=== PATIENT | female | born 1980 | race Caucasian/White ===

== ENCOUNTER 2017-11-12 14:31 | Emergency (ER) | payer SELFPAY ==
[2017-11-12] MEDS ORDERED: HYDROcodone/Acetaminophen 10/325 mg Tablet ONE (14:55)
[2017-11-12] MEDS ORDERED: cefTRIAXone\\ROCEPHIN 1 GM VIAL ONE (14:55)
[2017-11-12] MEDS ORDERED: Ibuprofen 800 MG TAB ONE (14:55)
[2017-11-12] MEDS ORDERED: Lidocaine 1% 20 ML MDV ONE (14:55)
== END 2017-11-12 15:15 | disposition home or self-care (01) ==
LOC: BURERS 14:31
DX: K04.7 Periapical abscess without sinus (principal); K02.9 Dental caries, unspecified; K03.81 Cracked tooth; F41.9 Anxiety disorder, unspecified; F32.9 Major depressive disorder, single episode, unspecified; F17.210 Nicotine dependence, cigarettes, uncomplicated
CPT/HCPCS: 96372; J0696; J2001

== ENCOUNTER 2018-01-04 17:37 | Emergency (ER) | payer SELFPAY ==
[2018-01-04] MEDS ORDERED: Acetaminophen/Codeine 30-300mg Tablet ONE (17:54)
[2018-01-04] MEDS ORDERED: Ketorolac Tromethamine 60 MG/2 ML VIAL ONE (17:54)
== END 2018-01-04 18:16 | disposition home or self-care (01) ==
LOC: BURERS 17:37
DX: M26.621 Arthralgia of right temporomandibular joint (principal); F32.9 Major depressive disorder, single episode, unspecified; F41.9 Anxiety disorder, unspecified; F17.210 Nicotine dependence, cigarettes, uncomplicated
CPT/HCPCS: 99282; J1885

== ENCOUNTER 2018-02-01 19:17 | Emergency (ER) | payer SELFPAY ==
[2018-02-01] MEDS ORDERED: Lorazepam 0.5 MG TAB ONE (19:52)
[2018-02-01] MEDS ORDERED: Ibuprofen 200 MG TAB ONE (19:53)
[2018-02-01] MEDS ORDERED: Amoxicillin 125 mg/5 ml Oral Suspension ONE (19:53)
[2018-02-01] MEDS ORDERED: AMOXicillin 250 MG CAP ONE (19:53)
== END 2018-02-01 20:02 | disposition home or self-care (01) ==
LOC: BURERS 19:17
DX: K03.81 Cracked tooth (principal); K02.9 Dental caries, unspecified; F41.9 Anxiety disorder, unspecified; F32.9 Major depressive disorder, single episode, unspecified; F17.210 Nicotine dependence, cigarettes, uncomplicated; Z79.899 Other long term (current) drug therapy
CPT/HCPCS: 99282

== ENCOUNTER 2019-09-12 13:49 | Emergency (ER) | payer SELFPAY ==
--- NOTE | 2019-09-12 15:19 | RAD ---
RIGHT FOOT 3 VIEWS: DATE: 09/12/2019. FINDINGS: There is a transverse fracture through the 1st metatarsal shaft with slight displacement. Additional ly, there appears to be a small chip avulsion from the 1st metatarsal head. Finally, there is a frac ture of the medial cuneiform near the medial aspect of the 1st tarsometatarsal joint. The remainder of the foot appears intact. An old healed injury of the 5th metatarsal shaft was noted. IMPRESSION: Acute fractures of the 1st metatarsal and medial cuneiform. POS: HOME
[2019-09-12] MEDS ORDERED: Bacitracin 1 PK ONE (15:42)
[2019-09-12] MEDS ORDERED: Ketorolac Tromethamine 30 MG/ML VIAL ONE (15:54)
[2019-09-12] MEDS ORDERED: Adacel (T-DAP) 0.5 ML SYRINGE ONE (16:22)
== END 2019-09-12 16:40 | disposition left against medical advice (07) ==
LOC: BURERS 13:49
DX: S92.311A Displaced fracture of first metatarsal bone, right foot, initial encounter for closed fracture (principal); F41.9 Anxiety disorder, unspecified; F32.9 Major depressive disorder, single episode, unspecified; F17.210 Nicotine dependence, cigarettes, uncomplicated; W20.8XXA Other cause of strike by thrown, projected or falling object, initial encounter
CPT/HCPCS: 28470; 90715; 96372; J1885

== ENCOUNTER 2020-01-04 11:07 | Emergency (ER) | payer SELFPAY ==
[2020-01-04] MEDS ORDERED: Morphine 4 MG/ML VIAL ONE (11:23)
[2020-01-04] MEDS ORDERED: Cyclobenzaprine 10 MG TAB ONE (11:24)
== END 2020-01-04 12:15 | disposition home or self-care (01) ==
LOC: BURERS 11:07
DX: M62.830 Muscle spasm of back (principal); F41.9 Anxiety disorder, unspecified; F17.210 Nicotine dependence, cigarettes, uncomplicated; X50.1XXA Overexertion from prolonged static or awkward postures, initial encounter
CPT/HCPCS: 96372; 99283; J2270

== ENCOUNTER 2020-04-18 12:13 | Emergency (ER) | payer SELFPAY ==
[2020-04-18] MEDS ORDERED: CEFAZOLIN 1 GM VIAL ONE (13:28)
[2020-04-18] MEDS ORDERED: Lorazepam 2 MG/ML VIAL ONE (14:07)
[2020-04-18] MEDS ORDERED: Ketorolac Tromethamine 30 MG/ML VIAL ONE (14:20)
[2020-04-18 14:25] LABS: #Basophils 0.1 thou/uL (0.0-0.2); #Eosinphils 0.1 thou/uL (0.0-0.7); #Lymphocytes 2.6 thou/uL (1.20-3.40); #Monocytes 1.2 thou/uL (0.11-0.59); #Neutrophils 6.1 thou/uL (1.40-6.50); %Eosinophils 1.1 % (0.0-10.0); %Lymphocytes 25.5 % (21.0-51.0); %Monocytes 11.9 % (0.0-10.0); %Neutrophils 60.5 % (42.0-75.0); Hemoglobin 11.5 g/dL (12.0-16.0); Mean Corpuscular HGB CONC 29.4 g/dL (32.0-36.0); Mean Corpuscular Hemoglobin 26.8 pg (27.0-31.0); Mean Corpuscular Volume 91.4 fL (78.0-98.0); Mean Platelet Volume 7.1 fL (7.4-10.4); Platelet Count 506 thou/uL (130-400); RBC Distribution Width 16.1 % (11.5-14.5); White Blood Cell (WBC) Count 10.1 thou/uL (4.8-10.8)
[2020-04-18 14:38] LABS: Hypochromia SLIGHT = 6-15 cells (100X) (0-5/hpf); MDiff Complete? YES
--- NOTE | 2020-04-18 16:08 | RAD ---
RIGHT HAND THREE VIEWS: 04/18/20 Soft tissue swelling is seen around the proximal portion of the third digit. No fracture or area of b jamaal destruction was seen here or elsewhere in the hand or wrist. IMPRESSION: Swelling. POS: HOME
== END 2020-04-18 15:15 | disposition short-term general hospital (02) ==
LOC: BURERS 12:13
DX: L02.511 Cutaneous abscess of right hand (principal); F41.9 Anxiety disorder, unspecified; F17.210 Nicotine dependence, cigarettes, uncomplicated
CPT/HCPCS: 85025; 85652; 96365; 96375; J0690; J1885; J2060

== ENCOUNTER 2021-12-06 21:00 | Emergency (ER) | payer SELFPAY ==
[2021-12-06] MEDS ORDERED: Ibuprofen 800 MG TAB ONE (21:26)
[2021-12-06] MEDS ORDERED: HYDROcodone/Acetaminophen 5/325 mg Tablet ONE (22:02)
== END 2021-12-06 22:15 | disposition home or self-care (01) ==
LOC: BURERS 21:00
DX: S22.41XA Multiple fractures of ribs, right side, initial encounter for closed fracture (principal); F17.210 Nicotine dependence, cigarettes, uncomplicated; W00.0XXA Fall on same level due to ice and snow, initial encounter
CPT/HCPCS: 71250; 94799

== ENCOUNTER 2022-07-18 14:15 | Emergency (ER) | payer SELFPAY ==
[2022-07-18] MEDS ORDERED: predniSONE 20 MG TAB ONE (14:39)
== END 2022-07-18 14:53 | disposition home or self-care (01) ==
LOC: BURERS 14:15
DX: M79.652 Pain in left thigh (principal); F17.210 Nicotine dependence, cigarettes, uncomplicated
CPT/HCPCS: 99283; J7512

== ENCOUNTER 2022-08-01 22:12 | Emergency (ER) | payer SELFPAY ==
[2022-08-01] MEDS ORDERED: predniSONE 20 MG TAB ONE (22:36)
== END 2022-08-01 22:45 | disposition home or self-care (01) ==
LOC: BURERS 22:12
DX: M25.552 Pain in left hip (principal); F17.210 Nicotine dependence, cigarettes, uncomplicated
CPT/HCPCS: 99283; J7512

== ENCOUNTER 2023-01-18 07:53 | Emergency (ER) | payer SELFPAY ==
[2023-01-18] MEDS ORDERED: Morphine 4 MG/ML VIAL ONE (09:28)
[2023-01-18] MEDS ORDERED: Dexamethasone 10 MG/ML VIAL ONE (09:28)
[2023-01-18] MEDS ORDERED: Lorazepam 0.5 MG TAB ONE (09:28)
[2023-01-18 10:28] LABS: Bilirubin Negative (Negative); Blood, Urine Negative (Negative); Clarity Clear (Clear); Glucose, Urine (Dipstick) Negative (Negative); Ketone, Urine Negative (Negative); Leukocyte Negative (Negative); Nitrite Negative (Negative); Protein, Urine (Dipstick) Negative (Neg-Trace); Urobilinogen 0.2 mg/dL (Less than 2); pH, Urine 6.5 (5.0-9.0)
[2023-01-18] MEDS ORDERED: Ibuprofen 200 MG TAB ONE (11:12)
== END 2023-01-18 18:56 | disposition short-term general hospital (02) ==
LOC: BURERS 07:53
DX: M54.50 Low back pain, unspecified (principal); F17.210 Nicotine dependence, cigarettes, uncomplicated; W08.XXXA Fall from other furniture, initial encounter
CPT/HCPCS: 72100; 72170; 81003; 96372; 96374; J1100; J2270

== ENCOUNTER 2023-01-20 18:07 | Emergency (ER) | payer OTHER ==
[2023-01-20] MEDS ORDERED: HYDROcodone/Acetaminophen 10/325 mg Tablet ONE ×2 (18:24→18:25)
== END 2023-01-20 19:15 | disposition home or self-care (01) ==
LOC: BURERS 18:07
DX: T83.011A Breakdown (mechanical) of indwelling urethral catheter, initial encounter (principal); F17.210 Nicotine dependence, cigarettes, uncomplicated
CPT/HCPCS: 51702

== ENCOUNTER 2023-03-26 21:18 | Emergency (ER) | payer OTHER ==
[2023-03-26] MEDS ORDERED: Morphine 2 MG/ML VIAL ONE (22:04)
[2023-03-26] MEDS ORDERED: Ketorolac Tromethamine 60 MG/2 ML VIAL ONE (22:05)
[2023-03-26] MEDS ORDERED: Morphine 4 MG/ML VIAL ONE (22:05)
[2023-03-26] MEDS ORDERED: Ondansetron ODT 4 MG TAB ONE (22:05)
== END 2023-03-26 22:41 | disposition home or self-care (01) ==
LOC: BURERS 21:18
DX: M54.50 Low back pain, unspecified (principal); F17.210 Nicotine dependence, cigarettes, uncomplicated
CPT/HCPCS: 96372; 99283; J1885; J2270; J2272; Q0162

== ENCOUNTER 2025-05-20 13:15 | Emergency (ER) | payer OTHER, SELFPAY ==
[2025-05-20] MEDS ORDERED: Ketorolac Tromethamine 30 MG (1 mL) VIAL ONE (13:56)
[2025-05-20] MEDS ORDERED: Amoxicillin/Potassium Clav 875 MG TAB ONE (13:56)
== END 2025-05-20 14:00 | disposition home or self-care (01) ==
LOC: BURERS 13:15
DX: K04.7 Periapical abscess without sinus (principal); F17.210 Nicotine dependence, cigarettes, uncomplicated
CPT/HCPCS: 96372; 99282; J1885

== ENCOUNTER 2025-06-04 08:07 | Emergency (ER) | payer OTHER ==
[2025-06-04] MEDS ORDERED: Dexamethasone 4 MG TAB ONE ×2 (09:01→09:04)
[2025-06-04] MEDS ORDERED: Ketorolac Tromethamine 30 MG (1 mL) VIAL ONE (09:01)
== END 2025-06-04 09:15 | disposition home or self-care (01) ==
LOC: BURERS 08:07
DX: M54.50 Low back pain, unspecified (principal); M25.561 Pain in right knee; G89.29 Other chronic pain; F17.210 Nicotine dependence, cigarettes, uncomplicated
CPT/HCPCS: 96372; 99283; J1885; J8540